=== PATIENT | female | born 1985 ===

== ENCOUNTER 2024-10-12 08:29 | Emergency (ER) | payer BC, OTHER ==
[~2024-10-12] VITALS: Ht 165.1 cm; Wt 161.6 kg
[~2024-10-12 08:29] MED LIST: GABAPENTIN300 MG PO; IBUPROFEN600 MG PO; MEDROL4 MG PO; PRENATAL MULTI1 EAC2 PO; Z.0.IRON325 M1 PO; Z.0.PROTONIX20 MG PO
[2024-10-12] MEDS ORDERED: COLCHICINE0.6 M1 PO (09:09)
[2024-10-12] MEDS: KETOROLAC TROMETHAMINE 30 MG/ML VIAL IM ONE (09:50)
[2024-10-12 09:53] VITALS: PULSE 76; RESP 18; TEMP 98.6; O2SAT 98
== END 2024-10-12 09:53 | disposition home or self-care (01) ==
LOC: FSED 08:44
DX: M79.674 Pain in right toe(s) (principal); M10.9 Gout, unspecified; E11.9 Type 2 diabetes mellitus without complications; D64.9 Anemia, unspecified; K21.9 Gastro-esophageal reflux disease without esophagitis; F41.9 Anxiety disorder, unspecified; Z91.148 Patient's other noncompliance with medication regimen for other reason
CPT/HCPCS: 36415; 73660; 81003; 81025; 82948; 99284; J1885